=== PATIENT | female | born 1970 | race Caucasian/White ===

== ENCOUNTER 2016-09-09 07:21 | Day surgery (SDC) | payer OTHER ==
[~2016-09-09] VITALS: Ht 160 cm; Wt 60.0 kg
[~2016-09-09 07:21] MED LIST: ALLERGY PILL PO; CHOL40002 PO; [UNRECOGNIZED DRUG - CODE] PO
[2016-09-09] MEDS ORDERED: LACTATED RINGERS 1,000 ML IV SCH (07:59)
[2016-09-09 08:01] VITALS: BP 125/83
[2016-09-09] MEDS ORDERED: SILVER NITRATE STICK TP ONE (09:00)
[2016-09-09] MEDS ORDERED: BUPIVACAINE/PF-EPI 0.25% 1:200K ONE ×2 (09:00→12:09)
[2016-09-09] MEDS ORDERED: FLUORESCEIN SODIUM 500 MG/5 ML ONE (09:00)
[2016-09-09] MEDS ORDERED: FENTANYL PF 250 MCG/5ML ONE (09:49)
[2016-09-09] MEDS ORDERED: FENTANYL PF 100 MCG/2ML ONE ×2 (10:47→12:21)
[2016-09-09] MEDS ORDERED: OXYcodone 5 MG/5 ML ORAL.SOL UDC ONE (12:08)
[2016-09-09] MEDS ORDERED: MEPERIDINE/PF 25MG/0.5ML ONE (12:08)
[2016-09-09] MEDS: FENTANYL PF 100 MCG/2ML IV PRN ×2 (12:15→12:32)
[2016-09-09] MEDS ORDERED: HYDROmorphone 1 MG/ML, 1ML IV PRN (12:30)
[2016-09-09] MEDS ORDERED: OXYcodone 5 MG/5 ML ORAL.SOL UDC PO PRN (12:30)
[2016-09-09] MEDS ORDERED: LABETALOL 5MG/ML, 20ML IV PRN (12:30)
[2016-09-09] MEDS ORDERED: ONDANSETRON 2MG/ML, 2ML IVPush PRN (12:30)
[2016-09-09] MEDS ORDERED: hydrALAzine 20 MG/ML, 1ML IV PRN (12:30)
[2016-09-09] MEDS ORDERED: ACETAMINOPHEN 325 MG TABLET PO PRN (12:30)
[2016-09-09] MEDS ORDERED: MEPERIDINE/PF 25MG/0.5ML IVPush PRN (12:30)
[2016-09-09] MEDS ORDERED: ACETAMINOPHEN 325 MG TABLET ONE (12:39)
[2016-09-09] MEDS ORDERED: GLYCOPYRROLATE 0.2MG/1ML ONE (15:24)
[2016-09-09] MEDS ORDERED: KETOROLAC 30 MG/1 ML ONE (15:24)
[2016-09-09] MEDS ORDERED: ONDANSETRON 2MG/ML, 2ML ONE (15:24)
[2016-09-09] MEDS ORDERED: SUCCINYLCHOLINE 20 MG/ML, 10ML ONE (15:24)
[2016-09-09] MEDS ORDERED: CEFAZOLIN 1,000 MG ONE (15:24)
[2016-09-09] MEDS ORDERED: ROCURONIUM 10 MG/ML ONE (15:24)
[2016-09-09] MEDS ORDERED: DEXAMETHASONE 4 MG/ML, 1ML ONE (15:24)
[2016-09-09] MEDS ORDERED: PROPOFOL 10 MG/ML, 20ML ONE (15:24)
[2016-09-09] MEDS ORDERED: NEOSTIGMINE 1 MG/ML, 10ML ONE (15:24)
[2016-09-09] MEDS ORDERED: PROMETHAZINE 12.5 MG SUPP PR PRN (16:30)
[2016-09-10] MEDS ORDERED: DOCU-30 PO (11:56)
[2016-09-10] MEDS ORDERED: OXYC1TAB6 PO (11:56)
[2016-09-10] MEDS ORDERED: ONDA4TAB10 PO (11:56)
== END 2016-09-09 16:55 | disposition home or self-care (01) ==
LOC: OUT 07:21
PROVIDERS: ATTEND Obstetrics & Gynecology
DX: D25.2 Subserosal leiomyoma of uterus (principal); G43.909 Migraine, unspecified, not intractable, without status migrainosus; F17.210 Nicotine dependence, cigarettes, uncomplicated
CPT/HCPCS: 58552; 88307; J0330; J0690; J1100; J1885; J2175; J2405; J2704; J2710; J3010; J7120; J3490

== ENCOUNTER 2017-08-23 07:45 | Emergency (ER) | payer SELFPAY ==
[~2017-08-23] VITALS: Ht 162.6 cm; Wt 65.8 kg
[~2017-08-23 07:45] MED LIST changes: +DOCU-131 PO; +ONDA4TAB10 PO; +OXYC1TAB6 PO
[2017-08-23] MEDS ORDERED: ESTR1PAT89 TD (08:26)
[2017-08-23] MEDS ORDERED: [UNRECOGNIZED DRUG - OTHER] PO (08:27)
[2017-08-23 08:47] LABS: BASOPHILS # (AUTO) 0.03 x10^3/uL (0-0.1); BASOPHILS % (AUTO) 0 % (0-1); EOSINOPHILS # (AUTO) 0.05 x10^3/uL (0-0.4); EOSINOPHILS % (AUTO) 1 % (1-7); LYMPHOCYTES # (AUTO) 1.98 x10^3/uL (1-3.4); LYMPHOCYTES % (AUTO) 21 % (22-44); MD NO; MEAN CORPUSCULAR HEMOGLOBIN 29.5 pg (27.0-34.8); MEAN CORPUSCULAR HGB CONC 33.3 g/dL (32.4-35.8); MEAN CORPUSCULAR VOLUME 88.8 fL (80-100); MEAN PLATELET VOLUME 8.8 fL (7.4-10.4); MONOCYTES # (AUTO) 0.52 x10^3/uL (0.2-0.8); MONOCYTES % (AUTO) 6 % (2-9); NEUTROPHILS # (AUTO) 6.67 x10^3/uL (1.8-6.8); NEUTROPHILS % (AUTO) 72 % (42-75); PLATELET COUNT 309 x10^3/uL (130-400); RED BLOOD COUNT 5.14 x10^6/uL (3.82-5.3); RED CELL DISTRIBUTION WIDTH 13.4 % (9.6-15.2)
[2017-08-23] MEDS ORDERED: MECLIZINE CHEWABLE 25 MG TAB ONE (08:55)
[2017-08-23 08:59] LABS: ALANINE AMINOTRANSFERASE 27 U/L (12-78); ALBUMIN 3.8 g/dL (3.4-5.0); ANION GAP 6 mmol/L (5-15); CALCIUM 9.1 mg/dL (8.5-10.1); CHLORIDE 106 mmol/L (98-107); CREATININE 0.81 mg/dL (0.55-1.02)
[2017-08-23] MEDS ORDERED: MECLIZINE CHEWABLE 25 MG TAB PO ONE (09:00)
[2017-08-23 09:02] LABS: ALKALINE PHOSPHATASE 76 U/L (45-117); BILIRUBIN,TOTAL 0.7 mg/dL (0.2-1.0); TOTAL PROTEIN 8.2 g/dL (6.4-8.2)
[2017-08-23 10:07] VITALS: BP 112/54
== END 2017-08-23 10:08 | disposition home or self-care (01) ==
LOC: ED 08:03
DX: R42 Dizziness and giddiness (principal); R11.0 Nausea; Z87.891 Personal history of nicotine dependence
CPT/HCPCS: 36415; 70450; 80053; 85025; 93005; 99285

== ENCOUNTER 2020-08-09 10:21 | Emergency (ER) | payer OTHER ==
[~2020-08-09] VITALS: Ht 162.6 cm; Wt 71.4 kg
[~2020-08-09 10:21] MED LIST changes: +ESTR1PAT89 TD; +[UNRECOGNIZED DRUG - OTHER] PO
[2020-08-09] MEDS ORDERED: HYDROmorphone 1 MG/ML, 1ML INJ IV ONE (11:00)
[2020-08-09] MEDS ORDERED: ONDANSETRON 2MG/ML, 2ML IVPush ONE (11:00)
[2020-08-09] MEDS ORDERED: SODIUM CHLORIDE FLUSH 10ML SYR IVF ONE (11:00)
--- NOTE | 2020-08-09 11:05 | NUR ---
LOWER CENTER ABD PAIN THAT INCREASES WITH MOVEMENT THAT STARTED YESTERDAY. HX OF HYSTERECTOMY NAUSEOUS, NO VOMITING, DENIES FEVERS' NORMAL BM THIS AM LAST MEAL -6AM-OATMREAL REPORT TO FARIDA BROCK
--- NOTE | 2020-08-09 11:15 | NUR ---
REPORT RECEIVED FROM DIEGO BROCK. ASSUMING CARE AT THIS TIME.
[2020-08-09] MEDS ORDERED: HYDROmorphone 2 MG/ML, 1ML ONE (11:18)
[2020-08-09] MEDS ORDERED: ONDANSETRON 2MG/ML, 2ML ONE (11:19)
[2020-08-09] MEDS ORDERED: NEOSPORIN OINT. PKT 1 PACKET ONE (11:19)
--- NOTE | 2020-08-09 11:24 | NUR ---
PIV PLACED-MEDICATED PER EMAR FOR PAIN AT 12/25
[2020-08-09 11:26] LABS: BASOPHILS % (AUTO) 0 % (0-1); EOSINOPHILS % (AUTO) 0 % (1-7); LYMPHOCYTES % (AUTO) 13 % (22-44); MEAN CORPUSCULAR HEMOGLOBIN 30.3 pg (27.0-34.8); MEAN CORPUSCULAR HGB CONC 33.7 g/dL (32.4-35.8); MEAN PLATELET VOLUME 9.1 fL (7.4-10.4); MONOCYTES % (AUTO) 8 % (2-9); NEUTROPHILS % (AUTO) 78 % (42-75); PLATELET COUNT 306 x10^3/uL (130-400); RED BLOOD COUNT 4.58 x10^6/uL (3.82-5.3); RED CELL DISTRIBUTION WIDTH 12.9 % (9.6-15.2)
[2020-08-09 11:27] LABS: MD NO
[2020-08-09 11:32] LABS: ALBUMIN 4.1 g/dL (3.4-5.0); ANION GAP 6 mmol/L (5-15); CALCIUM 9.5 mg/dL (8.5-10.1); CHLORIDE 105 mmol/L (98-107)
[2020-08-09 12:03] LABS: MICROSCOPIC NOT IND
[2020-08-09] MEDS ORDERED: OMNIPAQUE 350 MG/ML, 100ML BOTTLE ONE (12:10)
[2020-08-09] MEDS ORDERED: METRONIDAZOLE PMX 500MG/100ML 100 ML ONE (13:16)
--- NOTE | 2020-08-09 13:22 | NUR ---
IV ABX STARTED PER JUL. PT RESTING COMFORTABLY ON GURNEY. HUAN
[2020-08-09] MEDS ORDERED: METRONIDAZOLE PMX 500MG/100ML 100 ML IV ONE (13:30)
--- NOTE | 2020-08-09 14:22 | NUR ---
SECOND IV ABX STARTED PER JUL.
[2020-08-09] MEDS ORDERED: AMPICILLIN/SULBACTAM 3 GM in SODIUM CHLORIDE 0.9% 100 ML IV ONE (15:00)
[2020-08-09 15:09] VITALS: BP 105/60
== END 2020-08-09 15:11 | disposition home or self-care (01) ==
LOC: ED 11:36
DX: K57.32 Diverticulitis of large intestine without perforation or abscess without bleeding (principal); R10.32 Left lower quadrant pain; Z90.710 Acquired absence of both cervix and uterus
CPT/HCPCS: 36415; 74177; 80048; 81003; 82040; 85025; 96365; 96367; 96375; 99285; J0295; J1170; J2405; Q9967